=== PATIENT | female | born 1950 | race Caucasian/White ===

== ENCOUNTER 2017-02-13 15:33 | Emergency (ER) | payer OTHER, MEDICARE ==
[~2017-02-13 15:33] MED LIST: ACCUPRIL20 MG PO; ASPIRIN ADULT L81 M1 PO; BETAPACE80 MG PO; BYETTA10 MCG/0.0 SC; CINNAMON500 MG PO; CO Q-1010 M1 PO; COUMADIN5 M2 PO; Coumadin5 MG PO; DETROL LA4 MG PO; DETROL1 MG PO; DYAZIDE 25 MG-31 CAP PO; GLUCOPHAGE850 MG PO; HCTZ/TRIAMTEREN1 CAP PO; K + POTASSIUM20 MEQ PO; K-Dur 20MEQ20 MEQ PO; LECITHIN SUPER420 MG PO; LOVENOX100 MG/1 M SC; MULTI VITAMINS1 TAB PO; OCUVITE1 TA1 PO; PRAVASTATIN SOD40 MG PO; QUINAPRIL20 MG PO; SOTALOL HCL80 MG PO; TOPROL XL100 MG PO; TOPROL XL200 MG PO; VITAMIN C500 MG PO; VITAMIN D1000 IU PO; [UNRECOGNIZED DRUG - OTHER] PO; [UNRECOGNIZED DRUG - REMARK]; [UNRECOGNIZED DRUG - REMARK]
[2017-02-13 16:39] LABS: BASO % 0.7 % (0.0-1.0); EOS # 0.2 10*3/uL (0.0-0.4); EOS % 3.5 % (1.0-4.0); HEMATOCRIT 40.4 % (37.0-47.0); HEMOGLOBIN 13.9 g/dl (12.0-16.0); LYMPH # 1.3 10*3/uL (1.3-4.4); LYMPH % 21.3 % (27.0-41.0); MEAN CORPUSCULAR HGB 30.3 pg (27.0-31.0); MEAN CORPUSCULAR HGB CONC 34.4 g/dl (33.0-37.0); MEAN PLATELET VOLUME 10.1 fl (9.6-12.3); MONO # 0.7 10*3/uL (0.1-1.0); NEUT # 3.8 10*3/uL (2.3-7.9); NEUT % 62.3 % (47.0-73.0); PLATELET COUNT AUTOMATED 200 10*3/uL (130-400); RED BLOOD COUNT 4.59 10*6/uL (4.10-5.10)
[2017-02-13 16:47] LABS: INTERNATIONAL NORM RATIO 1.8 (2.0-3.5); PROTHROMBIN TIME 19.9 SECONDS (9.0-12.4)
[2017-02-13 16:55] LABS: ALBUMIN 4.1 gm/dl (3.1-4.5); ALKALINE PHOSPHATASE 60 U/L (45-117); BILIRUBIN, TOTAL 0.5 mg/dl (0.2-1.0); BUN 10 mg/dl (7-24); CARBON DIOXIDE 26 mmol/L (21-32); CHLORIDE 102 mmol/L (98-107); EST GLOM FILT AFRICAN AMERICAN > 60 ml/min; GLUCOSE 182 mg/dL (65-99); POTASSIUM 3.9 mmol/L (3.5-5.1); SGOT/AST 13 IU/L (3-35); SGPT/ALT 22 U/L (12-78); SODIUM 139 mmol/L (136-145); TOTAL PROTEIN 7.1 gm/dL (6.4-8.2)
[2017-02-13 18:09] VITALS: BP 151/73
== END 2017-02-13 18:48 | disposition home or self-care (01) ==
LOC: ED 15:33
PROVIDERS: Nurse Practitioner Family
DX: S80.12XA Contusion of left lower leg, initial encounter (principal); S50.02XA Contusion of left elbow, initial encounter; I48.91 Unspecified atrial fibrillation; M19.90 Unspecified osteoarthritis, unspecified site; Z79.899 Other long term (current) drug therapy; Z79.02 Long term (current) use of antithrombotics/antiplatelets; V89.2XXA Person injured in unspecified motor-vehicle accident, traffic, initial encounter; Y93.89 Activity, other specified; Y92.413 State road as the place of occurrence of the external cause; Y99.8 Other external cause status

== ENCOUNTER → 2017-04-12 | Outpatient (CLI) | payer MEDICARE, OTHER | END | disposition home or self-care (01) | LOC: LAB 10:33 | DX: E55.9 Vitamin D deficiency, unspecified (principal) ==

== ENCOUNTER → 2017-08-21 | Outpatient (CLI) | payer MEDICARE ==
[2017-08-21 09:13] LABS: EOS # 0.3 10*3/uL (0.0-0.4); HEMATOCRIT 41.2 % (37.0-47.0); HEMOGLOBIN 14.4 g/dl (12.0-16.0); LYMPH # 1.1 10*3/uL (1.3-4.4); LYMPH % 28.8 % (27.0-41.0); MEAN CORPUSCULAR HGB 30.1 pg (27.0-31.0); MEAN PLATELET VOLUME 10.1 fl (9.6-12.3); MONO # 0.5 10*3/uL (0.1-1.0); NEUT # 1.9 10*3/uL (2.3-7.9); NEUT % 49.9 % (47.0-73.0); PLATELET COUNT AUTOMATED 215 10*3/uL (130-400); RED BLOOD COUNT 4.79 10*6/uL (4.10-5.10); RED CELL DISTRI WIDTH 12.8 % (0-14.5); WHITE BLOOD COUNT 3.9 10*3/uL (4.8-10.8)
[2017-08-21 09:51] LABS: BUN 10 mg/dl (7-24); CHLORIDE 99 mmol/L (98-107); CHOLESTEROL 130 mg/dL (<200); CREATININE 0.88 mg/dL (0.55-1.02); POTASSIUM 4.2 mmol/L (3.5-5.1); SGOT/AST 17 IU/L (3-35); SGPT/ALT 29 U/L (12-78); SODIUM 135 mmol/L (136-145); TRIGLYCERIDES 100 mg/dl (<150); VLDL CHOLESTEROL 20 mg/dL (6-40)
[2017-08-21 10:02] LABS: ALKALINE PHOSPHATASE 71 U/L (45-117); HDL CHOLESTEROL 35 mg/dl (40-60); LDL CHOLESTEROL 75 mg/dL (9-159); THYROID STIM HORMONE (HS) 0.973 uIU/ml (0.358-4.75); TOTAL PROTEIN 7.3 gm/dL (6.4-8.2)
[2017-08-21 10:25] LABS: VITAMIN D, 25-HYDROXY 33.9 ng/mL (30-100)
== END | disposition home or self-care (01) ==
LOC: LAB 08:53
PROVIDERS: Internal Medicine
DX: I10 Essential (primary) hypertension (principal); I48.0 Paroxysmal atrial fibrillation; E11.9 Type 2 diabetes mellitus without complications; E78.4 Other hyperlipidemia; M81.0 Age-related osteoporosis without current pathological fracture

== ENCOUNTER → 2017-11-17 | Outpatient (CLI) | payer MEDICARE ==
[2017-11-17 08:02] LABS: ALBUMIN 4.2 gm/dl (3.1-4.5); ALKALINE PHOSPHATASE 54 U/L (45-117); BUN 14 mg/dl (7-24); CHLORIDE 102 mmol/L (98-107); CHOLESTEROL 121 mg/dL (<200); CREATININE 0.72 mg/dL (0.55-1.02); HDL CHOLESTEROL 33 mg/dl (40-60); LDL CHOLESTEROL 70 mg/dL (9-159); SGOT/AST 17 IU/L (3-35); SGPT/ALT 26 U/L (12-78); SODIUM 139 mmol/L (136-145); TOTAL PROTEIN 7.4 gm/dL (6.4-8.2); TRIGLYCERIDES 90 mg/dl (<150); VLDL CHOLESTEROL 18 mg/dL (6-40)
[2017-11-17 08:08] LABS: HEMATOCRIT 42.1 % (37.0-47.0); HEMOGLOBIN 14.1 g/dl (12.0-16.0); MEAN CELL VOLUME 88.1 fl (81.0-99.0); MEAN CORPUSCULAR HGB 29.5 pg (27.0-31.0); MEAN CORPUSCULAR HGB CONC 33.5 g/dl (33.0-37.0); MEAN PLATELET VOLUME 10.6 fl (9.6-12.3); PLATELET COUNT AUTOMATED 228 10*3/uL (130-400); RED BLOOD COUNT 4.78 10*6/uL (4.10-5.10); RED CELL DISTRI WIDTH 13.2 % (0-14.5); WHITE BLOOD COUNT 2.7 10*3/uL (4.8-10.8)
[2017-11-17 08:34] LABS: VITAMIN D, 25-HYDROXY 46.5 ng/mL (30-100)
[2017-11-17 09:17] LABS: PLATELET SUFFICIENCY NORMAL (NORMAL); TOTAL CELLS COUNTED 100 #CELLS
== END | disposition home or self-care (01) ==
LOC: LAB 07:00
PROVIDERS: Internal Medicine
DX: I48.0 Paroxysmal atrial fibrillation (principal); E78.4 Other hyperlipidemia; M81.0 Age-related osteoporosis without current pathological fracture; E55.9 Vitamin D deficiency, unspecified; C50.919 Malignant neoplasm of unspecified site of unspecified female breast; E11.9 Type 2 diabetes mellitus without complications; I10 Essential (primary) hypertension

== ENCOUNTER 2017-12-11 05:05 | Inpatient (IN) | payer MEDICARE ==
[~2017-12-11] VITALS: Ht 167.6 cm; Wt 87.1 kg
[2017-12-11] VITALS (14 sets, daily range): BP systolic 111–161; BP diastolic 67–126
--- NOTE | ~2017-12-11 | CON ---
[place], [place] REPORT OF CONSULTATION NAME: CATALINA CORADO [facility] #: [id number] UNIT #: [id number] ROOM: 406 DOCTOR: ANY LAINEZ MD BIRTHDATE: [birth year] DOS: 12/11/2017 REASON FOR CONSULTATION: Atrial fibrillation. CLINICAL HISTORY: The patient is a 67-year-old patient with history of paroxysmal atrial fibrillation, valvular heart disease, hypertension and diabetes, was admitted for palpitation. She was noted to have heart palpitations, but no episode of dizziness or syncope. She has been under significant stress at home with her 's illness as well as house chores. In the Emergency Room, she was found to be in atrial fibrillation with rapid ventricular rate and was admitted to the hospital and Cardiology counseled for further recommendation. She sees Dr. Diamond, the program attendant, and she was seen here a few months ago. She had a 2D echo which showed [id number], which is mostly unchanged from 2014 echo findings. Again, she denies any chest pain or shortness of breath, no dizziness or syncope, no nausea or vomiting, no headaches, no bladder or bowel symptoms, no neurologic symptoms, no genitourinary symptoms. She was on Coumadin several years ago for atrial fibrillation. Her last episode of atrial fibrillation was in around 2013. She was on aspirin and sotalol for her atrial fibrillation. REVIEW OF SYSTEMS: Review of the 10 systems was negative except as mentioned above. PAST MEDICAL HISTORY: 1. Paroxysmal atrial fibrillation. 2. Valvular heart disease with npqzvgcg-ch-nhsdoo aortic stenosis. 3. Hypertension. 4. Diabetes type 2. 5. History of leukopenia. PAST SURGICAL HISTORY: History of left foot repair and right foot repair and appendectomy. FAMILY HISTORY: Mother at the age of 68 from leukemia. Father had history of hypertension and from abdominal aortic aneurysm in his late 80s. SOCIAL HISTORY: The patient does not smoke, drink or use any illicit drugs. ALLERGIES: THE PATIENT IS ALLERGIC TO IODINE. HOME MEDICATIONS: Reviewed. Pertinent cardiac medications include aspirin and pravastatin and sotalol 120 mg twice a day. PHYSICAL EXAMINATION: VITAL SIGNS: Blood pressure 140/80, pulse variable between 110 to 125, weight 87.1 kilos. GENERAL: Alert, comfortable, in no acute distress. HEENT: Pupils round, equal. No jaundice. Tongue was moist. NECK: Supple. No distended neck veins, no carotid bruit. Thyroid not palpable. [place], [place] REPORT OF CONSULTATION NAME: CATALINA CORADO UNIT #: [id number] ROOM: [facility] DOCTOR: MIGEL OVIEDO,ANY BIRTHDATE: [birth year] CHEST: Symmetrical, nontender. LUNGS: Few rhonchi, but good air entry bilaterally. HEART: Irregularly irregular. No S3. Grade 3/6 systolic ejection murmur heard all over the precardium, grade 1/6 systolic murmur at the right sternal border. No palpable thrills. ABDOMEN: Benign, nontender. Bowel sounds normal. EXTREMITIES: Showed no edema. Distal pulses palpable. SKIN: Warm and dry. No cyanosis, no clubbing. RECTAL: Deferred. GENITOURINARY: Deferred. MUSCULOSKELETAL: No joint tenderness or swelling. NEUROLOGIC: The patient is alert and oriented. No focal neurological deficit. PSYCHIATRIC: The patient is alert with good mood and affect. REVIEW OF THE DIAGNOSTIC TESTS: EKG on admission showed atrial fibrillation with rapid ventricular rate, nonspecific ST changes. Her labs reviewed. The 2D echo in August 2017 reviewed. IMPRESSION: 1. Atrial fibrillation with rapid ventricular rate. 2. History of paroxysmal atrial fibrillation. 3. Haxjaegz-pi-vnpigu aortic stenosis. 4. Hypertension. 5. Diabetes type 2. RECOMMENDATIONS: 1. Rate control with IV Cardizem and change to p.o. Cardizem, and give her 1 dose of IV digoxin and continue her sotalol 120 mg twice a day. Risks, benefits of the oral anticoagulation were discussed due to high CHADS2-VASc score of 4. She is agreeable to take Coumadin, start at 6 mg daily since she was on 5 mg and 7.5 mg in the past. The patient is not a candidate for NOACs due to her significant valvular heart disease. Continue the Lovenox bridging until her INR is therapeutic at equal or greater than 2.0. 2. Her aortic stenosis is unchanged from 2014 echo and the patient is mostly asymptomatic, and she will follow up with Dr. Diamond. 3. Her blood pressures are stable and continue to monitor blood pressure since we are starting Cardizem for rate control. 4. Diabetes management is per Dr. Berger. 5. If the heart is stable, then possibly she can be discharged home in the next 24 to 48 hours. 6. I would not attempt any cardioversion at this time until she has been orally anticoagulated for at least 4 weeks. 7. She may need to go home on home Lovenox until her INR is therapeutic. There is no family at bedside. Above treatment and plan discussed with the patient and all of her questions were answered. [place], [place] REPORT OF CONSULTATION NAME: ULISSESMERRILLVIVEKCATALINA J UNIT #: [id number] ROOM: [facility] DOCTOR: ANY LAINEZ MD BIRTHDATE: [birth year] ANY LAINEZ MD CM:CONSTR:REPORT OF CONSULTATION [id number] 01/02/18 0727 interface
--- NOTE | ~2017-12-11 | PR ---
[place], [place] PROGRESS NOTE NAME: CATALINA CORADO [facility] #: [id number] UNIT #: [id number] ROOM: 406 DOCTOR: ANY LAINEZ MD BIRTHDATE: [birth year] DOS: 12/12/2017 REASON FOR VISIT: Atrial fibrillation and valvular heart disease. SUBJECTIVE: The patient is feeling better with occasional heart racing, but no chest pain, no dizziness, no palpitations or syncope, no PND. Still her heart rates are slightly higher with activity. She was taken off IV Cardizem last night. REVIEW OF SYSTEMS: Review of the 10 system negative except as mentioned above. PHYSICAL EXAMINATION: VITAL SIGNS: Blood pressure 113/59, pulse 92, respirations 18 and weight 87.1 kilos. GENERAL: Alert, comfortable, in no acute distress. HEENT: Pupils are equal, no jaundice. Tongue was moist. NECK: Supple, no distended neck veins, no carotid bruit. CHEST: Symmetrical, nontender. LUNGS: Clear to auscultation bilaterally. HEART: Irregularly irregular, grade 3/6 systolic ejection murmur heard all over the precardium. No palpable thrills. No S3. ABDOMEN: Bowel sounds normal, nontender. EXTREMITIES: Showed no edema. Distal pulses are palpable. SKIN: Warm and dry. No cyanosis, no clubbing. RECTAL: Deferred. GENITOURINARY: Deferred. MUSCULOSKELETAL: No joint tenderness or swelling. NEUROLOGIC: The patient is alert and oriented. No focal neurologic deficit. PSYCHIATRIC: The patient is alert with good mood and affect. Medications and labs reviewed. IMPRESSIONS AND PLAN: 1. Atrial fibrillation with rapid ventricular rate. We will give her IV digoxin 0.25 mg today and continue her sotalol and Cardizem. Due to her borderline low blood pressure, we cannot increase her Cardizem and the sotalol dose. Continue Coumadin and Lovenox. She needs Lovenox bridging until her INR is therapeutic at 2.0 or above. She will need home Lovenox and the casework specialist was notified to help her at home Lovenox. 2. History of paroxysmal atrial fibrillation with a CHADS2-VASc score of 4. She is agreeable to take the Coumadin. 3. Moderate aortic stenosis. She follows Dr. Diamond, her primary roll reclaimer after discharge, she is mostly asymptomatic. 4. Hypertension, currently stable. 5. Diabetes type 2 per primary care physician. 6. Non-morbid obesity. She can be transferred to telemetry floor and possible discharge in the next 24 hours. [place], [place] PROGRESS NOTE NAME: CATALINA CORADO UNIT #: [id number] ROOM: 406 DOCTOR: MIGEL OVIEDO,ANY BIRTHDATE: [birth year] I would not recommend rhythm management at this time until she will be on oral anticoagulants after 3-4 weeks. If she remained in atrial fibrillation, then Dr. Diamond will discuss further rhythm management. Above treatment was discussed with the patient. All questions answered. She will follow up with her primary care physician, Dr. Romero for outpatient protime monitoring. ANY LAINEZ MD CM:JERRY [id number] ANY LAINEZ MD 12/13/17 0156 interface
--- NOTE | ~2017-12-11 | PR ---
[place], [place] PROGRESS NOTE [facility] [id number] UNIT #: [id number] ROOM: 406 DOCTOR: DIEGO DREW MD BIRTHDATE: [birth year] DOS: 12/13/2017 SUBJECTIVE: The patient was seen today at her bedside for followup of her paroxysmal atrial fibrillation. She remains in atrial fibrillation with a controlled ventricular response, but is asymptomatic at this time. She also has a history of valvular heart disease with asymptomatic aortic stenosis. The patient has been ambulating in the [place] and has no symptoms at this time. The monitor shows that her heart rate is controlled, still out of rhythm. PHYSICAL EXAMINATION: VITAL SIGNS: Today, her pulse is 90 and irregularly irregular. Blood pressure is 126/71. She is afebrile. NECK: Supple. She has no jugular distention. Carotids are full. There are no bruits. She has no neck or supraclavicular masses. LUNGS: Respirations are unlabored. Her chest is clear. HEART: Has an irregularly irregular rhythm with a grade 3/6 systolic ejection murmur along the left sternal border. No diastolic murmurs are present. ABDOMEN: Soft. EXTREMITIES: Showed no edema. Peripheral pulses are palpable. She does seem to be doing well on her current medical regimen. I will be stopping aspirin and she will not get any further digoxin. We will continue heart rate control with diltiazem and we will continue to treat her with warfarin until her INR is therapeutic. At that point, Lovenox can be stopped. She should continue warfarin indefinitely. From my perspective, she can be discharged to home for followup with her primary hair designer, Dr. Diamond. Hopefully, within the next few weeks, she will convert spontaneously to sinus, but if not, he can discuss with her the possibility of an elective cardioversion as an outpatient. I thank the hospitalist physicians for asking our advice regarding her management. [place], [place] PROGRESS NOTE NAME: CATALINA CORADO UNIT #: [id number] ROOM: 406 DOCTOR: DIEGO DREW MD BIRTHDATE: [birth year] DIEGO DREW MD CM:PNTRANS [id number] DIEGO DREW MD 12/14/17 0646 interface
[~2017-12-11 05:05] MED LIST changes: -BYETTA10 MCG/0.0 SC; +BYETTA5 MCG/0.02 SC; -CINNAMON500 MG PO; +GLUCOPHAGE1000 MG PO; -GLUCOPHAGE850 MG PO; +MASON NATURAL500 MG PO
[2017-12-11 05:34] LABS: HEMATOCRIT 44.8 % (37.0-47.0); MEAN CELL VOLUME 89.1 fl (81.0-99.0); MEAN CORPUSCULAR HGB 29.8 pg (27.0-31.0); MEAN CORPUSCULAR HGB CONC 33.5 g/dl (33.0-37.0); MEAN PLATELET VOLUME 10.2 fl (9.6-12.3); PLATELET COUNT AUTOMATED 212 10*3/uL (130-400); RED BLOOD COUNT 5.03 10*6/uL (4.10-5.10); WHITE BLOOD COUNT 3.2 10*3/uL (4.8-10.8)
[2017-12-11] MEDS ORDERED: GLUCOTROL10 MG PO (05:38)
[2017-12-11] MEDS ORDERED: EXEMESTANE25 MG PO (05:40)
[2017-12-11 05:44] LABS: ACT PARTIAL THROMBO TIME 25.1 SECONDS (20.8-31.5)
[2017-12-11] MEDS ORDERED: OCUVITE ADULT1 EACH PO (05:44)
[2017-12-11] MEDS ORDERED: SUPER B COMPLE150 MG PO (05:46)
[2017-12-11] MEDS ORDERED: CO Q-1010 M2 PO (05:47)
[2017-12-11] MEDS ORDERED: BIOTIN10000 MC1 PO (05:47)
[2017-12-11] MEDS ORDERED: B12,B-12,B 12500 MC1 PO (05:48)
[2017-12-11 05:53] LABS: ALBUMIN 4.1 gm/dl (3.1-4.5); ALKALINE PHOSPHATASE 64 U/L (45-117); BUN 10 mg/dl (7-24); CHLORIDE 102 mmol/L (98-107); POTASSIUM 3.8 mmol/L (3.5-5.1); SGOT/AST 19 IU/L (3-35); SGPT/ALT 19 U/L (12-78); SODIUM 137 mmol/L (136-145); TOTAL PROTEIN 7.8 gm/dL (6.4-8.2)
[2017-12-11] MEDS ORDERED: ASPIRIN325 MG PO (05:54)
[2017-12-11] MEDS ORDERED: VITAMIN C1000 M5 PO (05:54)
[2017-12-11 05:55] LABS: TROPONIN I < 0.015 ng/ml (<0.045)
[2017-12-11 05:58] LABS: BASOPHILS 1 % (0-1); PLATELET SUFFICIENCY NORMAL (NORMAL); TOTAL CELLS COUNTED 100 #CELLS
[2017-12-11] MEDS ORDERED: TRIAMTERENE-HC1 EACH PO (07:20)
[2017-12-11] MEDS ORDERED: K-TAB20 MEQ PO (07:22)
[2017-12-11] MEDS ORDERED: FLORASTOR250 MG PO (07:23)
[2017-12-12 00:04] VITALS: BP 115/56
[2017-12-12 04:00] VITALS: BP 123/57
[2017-12-12 06:02] LABS: HEMOGLOBIN 14.6 g/dl (12.0-16.0); MEAN CELL VOLUME 88.3 fl (81.0-99.0); PLATELET COUNT AUTOMATED 203 10*3/uL (130-400); RED BLOOD COUNT 4.87 10*6/uL (4.10-5.10); RED CELL DISTRI WIDTH 12.8 % (0-14.5); WHITE BLOOD COUNT 2.4 10*3/uL (4.8-10.8)
[2017-12-12 06:27] LABS: BUN 10 mg/dl (7-24); CHLORIDE 101 mmol/L (98-107); CHOLESTEROL 114 mg/dL (<200); CREATININE 0.77 mg/dL (0.55-1.02); HDL CHOLESTEROL 31 mg/dl (40-60); LDL CHOLESTEROL 67 mg/dL (9-159); POTASSIUM 3.7 mmol/L (3.5-5.1); SODIUM 136 mmol/L (136-145); TRIGLYCERIDES 80 mg/dl (<150); VLDL CHOLESTEROL 16 mg/dL (6-40)
[2017-12-12 06:55] LABS: ATYPICAL LYMPHS 2 % (0-0); BASOPHILS 1 % (0-1); TOTAL CELLS COUNTED 100 #CELLS
[2017-12-12 06:56] LABS: PLATELET SUFFICIENCY NORMAL (NORMAL)
[2017-12-12 08:00] VITALS: BP 113/59
[2017-12-12 12:00] VITALS: BP 108/66
[2017-12-12 16:00] VITALS: BP 119/57
[2017-12-12 20:00] VITALS: BP 118/49
[2017-12-13] VITALS: BP 130/77
[2017-12-13 06:31] LABS: HEMATOCRIT 43.2 % (37.0-47.0); HEMOGLOBIN 14.7 g/dl (12.0-16.0); MEAN CELL VOLUME 88.2 fl (81.0-99.0); MEAN PLATELET VOLUME 10.1 fl (9.6-12.3); PLATELET COUNT AUTOMATED 226 10*3/uL (130-400); RED CELL DISTRI WIDTH 12.9 % (0-14.5); WHITE BLOOD COUNT 2.5 10*3/uL (4.8-10.8)
[2017-12-13 06:51] LABS: BUN 13 mg/dl (7-24); CHLORIDE 103 mmol/L (98-107); POTASSIUM 3.9 mmol/L (3.5-5.1); SODIUM 136 mmol/L (136-145)
[2017-12-13 06:52] LABS: CREATININE 0.78 mg/dL (0.55-1.02)
[2017-12-13 07:52] LABS: BASOPHILS 1 % (0-1); PLATELET SUFFICIENCY NORMAL (NORMAL); TOTAL CELLS COUNTED 100 #CELLS
[2017-12-13 08:00] VITALS: BP 110/57
[2017-12-13 12:00] VITALS: BP 126/71
[2017-12-13 12:18] LABS: INTERNATIONAL NORM RATIO 1.1 (2.0-3.5)
[2017-12-13 16:00] VITALS: BP 116/54
[2017-12-13] MEDS ORDERED: B12100 MC1 PO (16:36)
[2017-12-13] MEDS ORDERED: ENOXAPARIN100 MG/1 M SC (16:36)
[2017-12-13] MEDS ORDERED: COUMADIN6 M2 PO (16:36)
[2017-12-13] MEDS ORDERED: DILTIAZEM HCL90 M1 PO (16:36)
[2017-12-13] MEDS ORDERED: CARTIA XT180 MG PO (17:40)
== END 2017-12-13 17:43 | disposition home or self-care (01) | DRG 309 ==
LOC: ED 05:05 → ICCU 06:12 → 4E 06:12 → EDHOLD 06:12 → ICCU 06:36 → 4E 12-12 10:24
PROVIDERS: Internal Medicine; Internal Medicine Hospice and Palliative Medicine; Student in an Organized Health Care Education/Training Program
DX: I48.2 Chronic atrial fibrillation (principal); R65.10 Systemic inflammatory response syndrome (SIRS) of non-infectious origin without acute organ dysfunction; D68.59 Other primary thrombophilia; D70.9 Neutropenia, unspecified; E11.65 Type 2 diabetes mellitus with hyperglycemia; E78.00 Pure hypercholesterolemia, unspecified; E53.8 Deficiency of other specified B group vitamins; E55.9 Vitamin D deficiency, unspecified; R00.0 Tachycardia, unspecified; I35.0 Nonrheumatic aortic (valve) stenosis; I10 Essential (primary) hypertension; E66.9 Obesity, unspecified; I48.0 Paroxysmal atrial fibrillation; Z90.49 Acquired absence of other specified parts of digestive tract; Z91.041 Radiographic dye allergy status; Z79.01 Long term (current) use of anticoagulants; Z79.82 Long term (current) use of aspirin; Z82.3 Family history of stroke; Z80.6 Family history of leukemia; Z68.31 Body mass index [BMI] 31.0-31.9, adult

== ENCOUNTER → 2017-12-15 | Outpatient (CLI) | payer MEDICARE ==
[~2017-12-15] MED LIST changes: +ASPIRIN325 MG PO; +B12,B-12,B 12500 MC1 PO; +B12100 MC1 PO; +BIOTIN10000 MC1 PO; +CARTIA XT180 MG PO; +CO Q-1010 M2 PO; +COUMADIN6 M2 PO; +DILTIAZEM HCL90 M1 PO; +ENOXAPARIN100 MG/1 M SC; +EXEMESTANE25 MG PO; +FLORASTOR250 MG PO; +GLUCOTROL10 MG PO; +K-TAB20 MEQ PO; +OCUVITE ADULT1 EACH PO; +SUPER B COMPLE150 MG PO; +TRIAMTERENE-HC1 EACH PO; +VITAMIN C1000 M5 PO
[2017-12-15 08:26] LABS: INTERNATIONAL NORM RATIO 1.4 (2.0-3.5)
== END | disposition home or self-care (01) ==
LOC: LAB 07:10
PROVIDERS: Internal Medicine Hospice and Palliative Medicine
DX: I48.91 Unspecified atrial fibrillation (principal)

== ENCOUNTER → 2017-12-18 | Outpatient (CLI) | payer MEDICARE ==
[2017-12-18 08:45] LABS: INTERNATIONAL NORM RATIO 2.5 (2.0-3.5)
== END | disposition home or self-care (01) ==
LOC: LAB 07:08
PROVIDERS: Internal Medicine Hospice and Palliative Medicine
DX: I48.91 Unspecified atrial fibrillation (principal)

== ENCOUNTER → 2017-12-25 | Outpatient (CLI) | payer MEDICARE ==
[2017-12-25 08:00] LABS: INTERNATIONAL NORM RATIO 3.2 (2.0-3.5)
== END | disposition home or self-care (01) ==
LOC: LAB 07:04
PROVIDERS: Internal Medicine
DX: I48.91 Unspecified atrial fibrillation (principal)

== ENCOUNTER → 2018-01-01 | Outpatient (CLI) | payer MEDICARE | END | disposition home or self-care (01) | LOC: LAB 07:05 | PROVIDERS: Internal Medicine | DX: I48.91 Unspecified atrial fibrillation (principal) ==

== ENCOUNTER → 2018-01-09 | Outpatient (CLI) | payer MEDICARE ==
[2018-01-09 08:15] LABS: INTERNATIONAL NORM RATIO 2.8 (2.0-3.5)
== END | disposition home or self-care (01) ==
LOC: LAB 07:23
PROVIDERS: Internal Medicine Hospice and Palliative Medicine
DX: I48.91 Unspecified atrial fibrillation (principal)

== ENCOUNTER → 2018-01-16 | Outpatient (CLI) | payer MEDICARE ==
[2018-01-16 10:12] LABS: INTERNATIONAL NORM RATIO 2.6 (2.0-3.5)
== END | disposition home or self-care (01) ==
LOC: LAB 09:25
PROVIDERS: Internal Medicine Hospice and Palliative Medicine
DX: I48.91 Unspecified atrial fibrillation (principal)

== ENCOUNTER → 2018-01-24 | Outpatient (CLI) | payer MEDICARE ==
[2018-01-24 08:18] LABS: INTERNATIONAL NORM RATIO 2.9 (2.0-3.5)
== END | disposition home or self-care (01) ==
LOC: LAB 06:59
PROVIDERS: Internal Medicine Hospice and Palliative Medicine
DX: I48.91 Unspecified atrial fibrillation (principal)

== ENCOUNTER → 2018-01-31 | Outpatient (CLI) | payer MEDICARE ==
[2018-01-31 09:46] LABS: INTERNATIONAL NORM RATIO 2.9 (2.0-3.5)
== END | disposition home or self-care (01) ==
LOC: LAB 08:34
PROVIDERS: Internal Medicine Hospice and Palliative Medicine
DX: I48.91 Unspecified atrial fibrillation (principal)

== ENCOUNTER → 2018-02-07 | Outpatient (CLI) | payer MEDICARE ==
[2018-02-07 09:30] LABS: INTERNATIONAL NORM RATIO 2.2 (2.0-3.5)
== END | disposition home or self-care (01) ==
LOC: LAB 08:01
PROVIDERS: Internal Medicine Hospice and Palliative Medicine
DX: I48.91 Unspecified atrial fibrillation (principal)

== ENCOUNTER → 2018-09-07 | Outpatient (CLI) | payer OTHER | END | disposition home or self-care (01) | LOC: MRI 09:55 | DX: S83.282A Other tear of lateral meniscus, current injury, left knee, initial encounter (principal); M25.462 Effusion, left knee; M17.12 Unilateral primary osteoarthritis, left knee; X58.XXXA Exposure to other specified factors, initial encounter; Y93.89 Activity, other specified; Y92.89 Other specified places as the place of occurrence of the external cause; Y99.8 Other external cause status ==

== ENCOUNTER → 2019-09-02 | Outpatient (CLI) | payer OTHER | END | disposition home or self-care (01) | LOC: CARD 11:30 | DX: I51.7 Cardiomegaly (principal); Z95.2 Presence of prosthetic heart valve ==

== ENCOUNTER → 2019-12-04 | Outpatient (CLI) | payer MEDICARE ==
[2019-12-04 09:59] LABS: EOS # 0.3 10*3/uL (0.0-0.4); EOS % 7.4 % (1.0-4.0); HEMATOCRIT 41.7 % (37.0-47.0); LYMPH # 1.5 10*3/uL (1.3-4.4); LYMPH % 36.1 % (27.0-41.0); MEAN CELL VOLUME 90.1 fl (81.0-99.0); MEAN CORPUSCULAR HGB 29.6 pg (27.0-31.0); MEAN CORPUSCULAR HGB CONC 32.9 g/dl (33.0-37.0); MEAN PLATELET VOLUME 10.2 fl (9.6-12.3); MONO # 0.7 10*3/uL (0.1-1.0); MONO % 16.4 % (3.0-9.0); NEUT # 1.7 10*3/uL (2.3-7.9); NEUT % 39.1 % (47.0-73.0); PLATELET COUNT AUTOMATED 271 10*3/uL (130-400); RED BLOOD COUNT 4.63 10*6/uL (4.10-5.10); RED CELL DISTRI WIDTH 13.2 % (0-14.5); WHITE BLOOD COUNT 4.2 10*3/uL (4.8-10.8)
[2019-12-04 10:27] LABS: ALKALINE PHOSPHATASE 68 U/L (45-117); BUN 9 mg/dl (7-24); CHLORIDE 103 mmol/L (98-107); CHOLESTEROL 129 mg/dL (<200); CREATININE 0.74 mg/dL (0.55-1.02); HDL CHOLESTEROL 32 mg/dl (40-60); LDL CHOLESTEROL 66 mg/dL (9-159); POTASSIUM 4.4 mmol/L (3.5-5.1); SGOT/AST 21 IU/L (3-35); SGPT/ALT 28 U/L (12-78); SODIUM 137 mmol/L (136-145); TOTAL PROTEIN 7.5 gm/dL (6.4-8.2); TRIGLYCERIDES 156 mg/dl (<150); VLDL CHOLESTEROL 31 mg/dL (6-40)
== END | disposition home or self-care (01) ==
LOC: LAB 09:24
PROVIDERS: Internal Medicine
DX: I48.0 Paroxysmal atrial fibrillation (principal); C50.919 Malignant neoplasm of unspecified site of unspecified female breast; F34.1 Dysthymic disorder; E78.81 Lipoid dermatoarthritis; I10 Essential (primary) hypertension; E55.9 Vitamin D deficiency, unspecified; E11.9 Type 2 diabetes mellitus without complications; M19.90 Unspecified osteoarthritis, unspecified site

== ENCOUNTER → 2020-02-05 | Outpatient (CLI) | payer MEDICARE | END | disposition home or self-care (01) | LOC: RAD 13:30 | DX: Z13.820 Encounter for screening for osteoporosis (principal); Z78.0 Asymptomatic menopausal state ==

== ENCOUNTER → 2020-05-29 | Outpatient (CLI) | payer MEDICARE ==
[2020-05-30 05:09] LABS: CREATININE,URINE 71.2 mg/dL (Not Estab.)
== END | disposition home or self-care (01) ==
LOC: LAB 12:55
PROVIDERS: ATTEND Internal Medicine Endocrinology, Diabetes & Metabolism
DX: M81.0 Age-related osteoporosis without current pathological fracture (principal)

== ENCOUNTER → 2020-11-02 | Outpatient (CLI) | payer MEDICARE | END | disposition home or self-care (01) | LOC: CARD 08:42 | PROVIDERS: ATTEND Internal Medicine Cardiovascular Disease | DX: I48.0 Paroxysmal atrial fibrillation (principal) ==

== ENCOUNTER → 2021-03-01 | Outpatient (CLI) | payer MEDICARE ==
[2021-03-01 09:35] LABS: BASO % 0.8 % (0.0-1.0); EOS # 0.1 10*3/uL (0.0-0.4); EOS % 3.5 % (1.0-4.0); LYMPH # 1.3 10*3/uL (1.3-4.4); MEAN CELL VOLUME 87.8 fl (81.0-99.0); MEAN CORPUSCULAR HGB 29.3 pg (27.0-31.0); MEAN CORPUSCULAR HGB CONC 33.4 g/dl (33.0-37.0); MEAN PLATELET VOLUME 9.7 fl (9.6-12.3); MONO # 0.5 10*3/uL (0.1-1.0); MONO % 13.3 % (3.0-9.0); NEUT % 50.4 % (47.0-73.0); PLATELET COUNT AUTOMATED 234 10*3/uL (130-400); RED BLOOD COUNT 4.67 10*6/uL (4.10-5.10); RED CELL DISTRI WIDTH 13.6 % (0-14.5)
[2021-03-01 10:05] LABS: ALBUMIN 4.2 gm/dl (3.1-4.5); BUN 10 mg/dl (7-24); CHLORIDE 105 mmol/L (98-107); CHOLESTEROL 142 mg/dL (<200); CREATININE 0.84 mg/dL (0.55-1.02); LDL CHOLESTEROL 77 mg/dL (9-159); POTASSIUM 4.2 mmol/L (3.5-5.1); SGOT/AST 26 IU/L (3-35); SGPT/ALT 34 U/L (12-78); SODIUM 138 mmol/L (136-145); TRIGLYCERIDES 131 mg/dl (<150)
[2021-03-01 10:14] LABS: ALKALINE PHOSPHATASE 56 U/L (45-117); TOTAL PROTEIN 7.8 gm/dL (6.4-8.2)
== END | disposition home or self-care (01) ==
LOC: LAB 09:20
PROVIDERS: ATTEND Internal Medicine
DX: I48.0 Paroxysmal atrial fibrillation (principal); E11.9 Type 2 diabetes mellitus without complications; E78.81 Lipoid dermatoarthritis; I10 Essential (primary) hypertension; C50.919 Malignant neoplasm of unspecified site of unspecified female breast; E55.9 Vitamin D deficiency, unspecified

== ENCOUNTER → 2021-03-17 | Outpatient (CLI) | payer MEDICARE | END | disposition home or self-care (01) | LOC: COVID19 15:52 | PROVIDERS: ATTEND Internal Medicine | DX: Z11.52 Encounter for screening for COVID-19 (principal) ==

== ENCOUNTER → 2021-06-28 | Outpatient (CLI) | payer MEDICARE | END | disposition home or self-care (01) | LOC: COVID19 16:42 | PROVIDERS: ATTEND Student in an Organized Health Care Education/Training Program | DX: Z11.52 Encounter for screening for COVID-19 (principal) ==

== ENCOUNTER 2021-08-18 17:29 | Emergency (ER) | payer MEDICARE ==
[~2021-08-18] VITALS: Ht 167.6 cm; Wt 77.1 kg
[2021-08-18 17:39] VITALS: BP 157/65
[2021-08-18 18:25] LABS: BASO # 0.1 10*3/uL (0.0-0.1); BASO % 0.8 % (0.0-1.0); EOS # 0.3 10*3/uL (0.0-0.4); EOS % 5.2 % (1.0-4.0); HEMATOCRIT 43.1 % (37.0-47.0); LYMPH # 1.9 10*3/uL (1.3-4.4); LYMPH % 31.8 % (27.0-41.0); MEAN CELL VOLUME 87.1 fl (81.0-99.0); MEAN CORPUSCULAR HGB 28.7 pg (27.0-31.0); MEAN CORPUSCULAR HGB CONC 32.9 g/dl (33.0-37.0); MEAN PLATELET VOLUME 10.1 fl (9.6-12.3); MONO # 0.8 10*3/uL (0.1-1.0); MONO % 12.8 % (3.0-9.0); NEUT # 2.9 10*3/uL (2.3-7.9); NEUT % 49.2 % (47.0-73.0); PLATELET COUNT AUTOMATED 266 10*3/uL (130-400); RED BLOOD COUNT 4.95 10*6/uL (4.10-5.10); WHITE BLOOD COUNT 5.9 10*3/uL (4.8-10.8)
[2021-08-18 18:39] LABS: ACT PARTIAL THROMBO TIME 29.1 SECONDS (20.0-32.1); INTERNATIONAL NORM RATIO 1.1 (2.0-3.5)
[2021-08-18 18:40] LABS: ALKALINE PHOSPHATASE 73 U/L (45-117); BUN 11 mg/dl (7-24); CHLORIDE 104 mmol/L (98-107); POTASSIUM 4.1 mmol/L (3.5-5.1); SGOT/AST 28 IU/L (3-35); SGPT/ALT 34 U/L (12-78); SODIUM 138 mmol/L (136-145); TOTAL PROTEIN 7.6 gm/dL (6.4-8.2)
== END 2021-08-18 23:27 | disposition home or self-care (01) ==
LOC: ED 17:29
PROVIDERS: Emergency Medicine
DX: G45.9 Transient cerebral ischemic attack, unspecified (principal); R20.2 Paresthesia of skin; E11.65 Type 2 diabetes mellitus with hyperglycemia; I48.91 Unspecified atrial fibrillation; I10 Essential (primary) hypertension; E11.9 Type 2 diabetes mellitus without complications; E66.9 Obesity, unspecified; Z79.899 Other long term (current) drug therapy

== ENCOUNTER → 2021-08-26 | Outpatient (CLI) | payer MEDICARE ==
[2021-08-26 10:50] LABS: EOS # 0.2 10*3/uL (0.0-0.4); EOS % 4.7 % (1.0-4.0); LYMPH # 1.3 10*3/uL (1.3-4.4); LYMPH % 31.6 % (27.0-41.0); MEAN CELL VOLUME 86.9 fl (81.0-99.0); MEAN CORPUSCULAR HGB CONC 33.4 g/dl (33.0-37.0); MEAN PLATELET VOLUME 9.9 fl (9.6-12.3); MONO # 0.5 10*3/uL (0.1-1.0); MONO % 11.5 % (3.0-9.0); NEUT # 2.1 10*3/uL (2.3-7.9); PLATELET COUNT AUTOMATED 225 10*3/uL (130-400); RED BLOOD COUNT 4.72 10*6/uL (4.10-5.10); RED CELL DISTRI WIDTH 12.9 % (0-14.5); WHITE BLOOD COUNT 4.1 10*3/uL (4.8-10.8)
[2021-08-26 11:16] LABS: BUN 9 mg/dl (7-24); CHLORIDE 105 mmol/L (98-107); CHOLESTEROL 130 mg/dL (<200); CREATININE 0.71 mg/dL (0.55-1.02); IRON 100 ug/dL (50-170); POTASSIUM 4.1 mmol/L (3.5-5.1); SGOT/AST 29 IU/L (3-35); SGPT/ALT 38 U/L (12-78); SODIUM 137 mmol/L (136-145); TOTAL PROTEIN 7.6 gm/dL (6.4-8.2); TRIGLYCERIDES 138 mg/dl (<150)
[2021-08-26 11:23] LABS: ALKALINE PHOSPHATASE 68 U/L (45-117); LDL CHOLESTEROL 47 mg/dL (9-159)
[2021-08-26 12:40] LABS: FERRITIN 24.6 ng/mL (10.0-291.0); VITAMIN D, 25-HYDROXY 46.9 ng/mL (30-100)
== END | disposition home or self-care (01) ==
LOC: LAB 10:23
PROVIDERS: ATTEND Internal Medicine
DX: E11.9 Type 2 diabetes mellitus without complications (principal); E78.81 Lipoid dermatoarthritis; I10 Essential (primary) hypertension; C50.919 Malignant neoplasm of unspecified site of unspecified female breast; E55.9 Vitamin D deficiency, unspecified; I48.0 Paroxysmal atrial fibrillation

== ENCOUNTER → 2021-09-08 | Outpatient (CLI) | payer MEDICARE | END | disposition home or self-care (01) | LOC: CARD 07:29 | PROVIDERS: ATTEND Internal Medicine Cardiovascular Disease | DX: Z95.2 Presence of prosthetic heart valve (principal) ==

== ENCOUNTER → 2022-01-01 | Outpatient (CLI) | payer MEDICARE ==
[2022-01-01 09:08] LABS: BASO % 0.9 % (0.0-1.0); EOS # 0.2 10*3/uL (0.0-0.4); HEMATOCRIT 40.2 % (37.0-47.0); LYMPH # 1.3 10*3/uL (1.3-4.4); MEAN CELL VOLUME 89.1 fl (81.0-99.0); MEAN CORPUSCULAR HGB 29.3 pg (27.0-31.0); MEAN CORPUSCULAR HGB CONC 32.8 g/dl (33.0-37.0); MEAN PLATELET VOLUME 9.9 fl (9.6-12.3); MONO # 0.5 10*3/uL (0.1-1.0); MONO % 10.5 % (3.0-9.0); NEUT # 2.5 10*3/uL (2.3-7.9); NEUT % 55.4 % (47.0-73.0); PLATELET COUNT AUTOMATED 220 10*3/uL (130-400); RED BLOOD COUNT 4.51 10*6/uL (4.10-5.10); WHITE BLOOD COUNT 4.6 10*3/uL (4.8-10.8)
[2022-01-01 09:27] LABS: ALKALINE PHOSPHATASE 82 U/L (45-117); BUN 7 mg/dl (7-24); CHLORIDE 104 mmol/L (98-107); CHOLESTEROL 121 mg/dL (<200); CREATININE 0.73 mg/dL (0.55-1.02); IRON 66 ug/dL (50-170); LDL CHOLESTEROL 62 mg/dL (9-159); POTASSIUM 4.2 mmol/L (3.5-5.1); SGOT/AST 32 IU/L (3-35); SGPT/ALT 38 U/L (12-78); SODIUM 138 mmol/L (136-145); TOTAL PROTEIN 7.2 gm/dL (6.4-8.2); TRIGLYCERIDES 114 mg/dl (<150)
[2022-01-01 10:18] LABS: FERRITIN 24.9 ng/mL (10.0-291.0); VITAMIN D, 25-HYDROXY 58.2 ng/mL (30-100)
== END | disposition home or self-care (01) ==
LOC: LAB 08:40
PROVIDERS: ATTEND Internal Medicine
DX: C50.919 Malignant neoplasm of unspecified site of unspecified female breast (principal); E11.9 Type 2 diabetes mellitus without complications; I10 Essential (primary) hypertension; E78.81 Lipoid dermatoarthritis; E55.9 Vitamin D deficiency, unspecified; E53.8 Deficiency of other specified B group vitamins

== ENCOUNTER 2022-06-04 17:14 | Emergency (ER) | payer MEDICARE ==
[~2022-06-04] VITALS: Ht 165.1 cm; Wt 81.6 kg
[2022-06-04 19:28] VITALS: BP 162/74
[2022-06-04 20:37] LABS: BASO # 0.1 10*3/uL (0.0-0.1); BASO % 0.7 % (0.0-1.0); EOS # 0.2 10*3/uL (0.0-0.4); EOS % 2.1 % (1.0-4.0); HEMATOCRIT 42.8 % (37.0-47.0); LYMPH # 2.4 10*3/uL (1.3-4.4); LYMPH % 32.3 % (27.0-41.0); MEAN CELL VOLUME 89.7 fl (81.0-99.0); MEAN CORPUSCULAR HGB CONC 33.4 g/dl (33.0-37.0); MEAN PLATELET VOLUME 10.1 fl (9.6-12.3); MONO # 1.3 10*3/uL (0.1-1.0); MONO % 17.4 % (3.0-9.0); NEUT # 3.4 10*3/uL (2.3-7.9); NEUT % 46.8 % (47.0-73.0); PLATELET COUNT AUTOMATED 302 10*3/uL (130-400); RED BLOOD COUNT 4.77 10*6/uL (4.10-5.10); RED CELL DISTRI WIDTH 12.4 % (0-14.5); WHITE BLOOD COUNT 7.3 10*3/uL (4.8-10.8)
[2022-06-04 20:51] LABS: ALKALINE PHOSPHATASE 74 U/L (46-116); CHLORIDE 98 mmol/L (98-107); CREATININE 0.64 mg/dL (0.55-1.02); POTASSIUM 3.7 mmol/L (3.4-5.1); SGPT/ALT 11 U/L (10-49); SODIUM 133 mmol/L (136-145); TOTAL PROTEIN 7.8 gm/dL (6.0-8.0)
[2022-06-04 20:55] LABS: BUN < 5 mg/dl (9-23)
== END 2022-06-04 22:42 | disposition home or self-care (01) ==
LOC: ED 17:14
PROVIDERS: Emergency Medicine
DX: H10.32 Unspecified acute conjunctivitis, left eye (principal); Z20.822 Contact with and (suspected) exposure to COVID-19; H11.31 Conjunctival hemorrhage, right eye; B97.4 Respiratory syncytial virus as the cause of diseases classified elsewhere; I48.91 Unspecified atrial fibrillation; E11.9 Type 2 diabetes mellitus without complications; E78.00 Pure hypercholesterolemia, unspecified; I10 Essential (primary) hypertension; E66.9 Obesity, unspecified; Z79.899 Other long term (current) drug therapy

== ENCOUNTER → 2022-07-21 | Outpatient (CLI) | payer MEDICARE ==
[2022-07-21 10:04] LABS: BASO % 0.9 % (0.0-1.0); EOS # 0.2 10*3/uL (0.0-0.4); EOS % 3.2 % (1.0-4.0); HEMATOCRIT 44.2 % (37.0-47.0); LYMPH # 1.4 10*3/uL (1.3-4.4); LYMPH % 30.9 % (27.0-41.0); MEAN CELL VOLUME 88.2 fl (81.0-99.0); MEAN CORPUSCULAR HGB 29.5 pg (27.0-31.0); MEAN CORPUSCULAR HGB CONC 33.5 g/dl (33.0-37.0); MEAN PLATELET VOLUME 9.6 fl (9.6-12.3); MONO # 0.5 10*3/uL (0.1-1.0); MONO % 9.9 % (3.0-9.0); NEUT # 2.6 10*3/uL (2.3-7.9); NEUT % 54.9 % (47.0-73.0); PLATELET COUNT AUTOMATED 270 10*3/uL (130-400); RED BLOOD COUNT 5.01 10*6/uL (4.10-5.10); RED CELL DISTRI WIDTH 12.8 % (0-14.5); WHITE BLOOD COUNT 4.7 10*3/uL (4.8-10.8)
[2022-07-21 10:35] LABS: ALKALINE PHOSPHATASE 64 U/L (46-116); BUN 10 mg/dl (9-23); CHLORIDE 100 mmol/L (98-107); CHOLESTEROL 140 mg/dL (<200); LDL CHOLESTEROL 74 mg/dL (9-159); POTASSIUM 3.9 mmol/L (3.4-5.1); SGPT/ALT 25 U/L (10-49); THYROID STIM HORMONE (HS) 0.868 uIU/ml (0.550-4.780); TOTAL PROTEIN 7.7 gm/dL (6.0-8.0); TRIGLYCERIDES 140 mg/dl (<150)
== END | disposition home or self-care (01) ==
LOC: LAB 09:35
PROVIDERS: ATTEND Internal Medicine
DX: E11.9 Type 2 diabetes mellitus without complications (principal); I10 Essential (primary) hypertension; E78.81 Lipoid dermatoarthritis; E78.5 Hyperlipidemia, unspecified; E53.8 Deficiency of other specified B group vitamins; E55.9 Vitamin D deficiency, unspecified; C50.919 Malignant neoplasm of unspecified site of unspecified female breast

== ENCOUNTER → 2023-01-13 | Outpatient (CLI) | payer MEDICARE ==
[2023-01-13 10:35] LABS: BASO % 0.9 % (0.0-1.0); EOS # 0.2 10*3/uL (0.0-0.4); EOS % 5.2 % (1.0-4.0); HEMATOCRIT 40.4 % (37.0-47.0); LYMPH # 1.3 10*3/uL (1.3-4.4); LYMPH % 38.4 % (27.0-41.0); MEAN CELL VOLUME 90.4 fl (81.0-99.0); MEAN CORPUSCULAR HGB 30.4 pg (27.0-31.0); MEAN CORPUSCULAR HGB CONC 33.7 g/dl (33.0-37.0); MEAN PLATELET VOLUME 10.2 fl (9.6-12.3); MONO # 0.5 10*3/uL (0.1-1.0); MONO % 14.6 % (3.0-9.0); NEUT # 1.3 10*3/uL (2.3-7.9); NEUT % 40.6 % (47.0-73.0); PLATELET COUNT AUTOMATED 253 10*3/uL (130-400); RED BLOOD COUNT 4.47 10*6/uL (4.10-5.10); RED CELL DISTRI WIDTH 13.1 % (0-14.5); WHITE BLOOD COUNT 3.3 10*3/uL (4.8-10.8)
[2023-01-13 11:06] LABS: ALKALINE PHOSPHATASE 52 U/L (46-116); BUN 8 mg/dl (9-23); CHLORIDE 104 mmol/L (98-107); CHOLESTEROL 124 mg/dL (<200); LDL CHOLESTEROL 64 mg/dL (9-159); SGPT/ALT 21 U/L (10-49); TOTAL PROTEIN 7.1 gm/dL (6.0-8.0); TRIGLYCERIDES 134 mg/dl (<150)
[2023-01-13 11:45] LABS: VITAMIN D, 25-HYDROXY 36.5 ng/mL (30-100)
== END | disposition home or self-care (01) ==
LOC: LAB 09:44
PROVIDERS: ATTEND Internal Medicine
DX: I48.0 Paroxysmal atrial fibrillation (principal); E11.9 Type 2 diabetes mellitus without complications; I10 Essential (primary) hypertension; E78.81 Lipoid dermatoarthritis; C50.919 Malignant neoplasm of unspecified site of unspecified female breast; E55.9 Vitamin D deficiency, unspecified; E53.8 Deficiency of other specified B group vitamins

== ENCOUNTER → 2023-12-01 | Outpatient (CLI) | payer MEDICARE ==
[2023-12-01 08:43] LABS: BASO % 1.1 % (0.0-1.0); EOS # 0.2 10*3/uL (0.0-0.4); EOS % 5.2 % (1.0-4.0); HEMATOCRIT 42.6 % (37.0-47.0); LYMPH # 1.4 10*3/uL (1.3-4.4); LYMPH % 38.8 % (27.0-41.0); MEAN CELL VOLUME 91.4 fl (81.0-99.0); MEAN CORPUSCULAR HGB CONC 32.9 g/dl (33.0-37.0); MONO # 0.6 10*3/uL (0.1-1.0); NEUT # 1.5 10*3/uL (2.3-7.9); NEUT % 39.6 % (47.0-73.0); PLATELET COUNT AUTOMATED 228 10*3/uL (130-400); RED BLOOD COUNT 4.66 10*6/uL (4.10-5.10); WHITE BLOOD COUNT 3.7 10*3/uL (4.8-10.8)
[2023-12-01 09:15] LABS: ALKALINE PHOSPHATASE 62 U/L (46-116); BUN 7 mg/dl (9-23); CHLORIDE 102 mmol/L (98-107); CHOLESTEROL 134 mg/dL (<200); LDL CHOLESTEROL 77 mg/dL (9-159); POTASSIUM 3.7 mmol/L (3.4-5.1); SGPT/ALT 19 U/L (5-49); TOTAL PROTEIN 7.3 gm/dL (6.0-8.0); TRIGLYCERIDES 126 mg/dl (<150)
[2023-12-01 10:07] LABS: VITAMIN D, 25-HYDROXY 44.9 ng/mL (30-100)
== END | disposition home or self-care (01) ==
LOC: LAB 08:22
PROVIDERS: ATTEND Internal Medicine
DX: I48.0 Paroxysmal atrial fibrillation (principal); I10 Essential (primary) hypertension; E11.9 Type 2 diabetes mellitus without complications; E78.81 Lipoid dermatoarthritis; E53.8 Deficiency of other specified B group vitamins; E55.9 Vitamin D deficiency, unspecified

== ENCOUNTER 2024-02-08 13:32 | Observation (INO) | payer MEDICARE ==
[~2024-02-08] VITALS: Ht 167.6 cm; Wt 86.2 kg
[2024-02-08 14:53] LABS: HEMATOCRIT 44.1 % (37.0-47.0); MEAN CELL VOLUME 91.5 fl (81.0-99.0); MEAN CORPUSCULAR HGB 29.7 pg (27.0-31.0); MEAN CORPUSCULAR HGB CONC 32.4 g/dl (33.0-37.0); MEAN PLATELET VOLUME 9.5 fl (9.6-12.3); PLATELET COUNT AUTOMATED 229 10*3/uL (130-400); RED BLOOD COUNT 4.82 10*6/uL (4.10-5.10); RED CELL DISTRI WIDTH 13.3 % (0-14.5); WHITE BLOOD COUNT 3.8 10*3/uL (4.8-10.8)
[2024-02-08 14:54] LABS: MANUAL DIFF REFLEX YES
[2024-02-08 15:02] LABS: ACT PARTIAL THROMBO TIME 30.8 SECONDS (20.0-32.1)
[2024-02-08] MEDS ORDERED: ASPIRIN, CHEWABLE 81 MG TAB PO ONE (15:05)
[2024-02-08 15:22] LABS: ATYPICAL LYMPHS 1 % (0-0); PLATELET SUFFICIENCY NORMAL (NORMAL); TOTAL CELLS COUNTED 100 #CELLS
[2024-02-08 15:28] LABS: BUN 7 mg/dl (9-23); CHLORIDE 103 mmol/L (98-107); POTASSIUM 3.9 mmol/L (3.4-5.1)
[2024-02-08] MEDS ORDERED: Ondansetron Hydrochloride 4 MG/2 ML VIAL IV PRN (15:55)
[2024-02-08] MEDS ORDERED: ACETAMINOPHEN 325 MG TAB PO PRN (15:55)
[2024-02-08] MEDS ORDERED: BISACODYL 5 MG TAB PO PRN (15:55)
[2024-02-08] MEDS ORDERED: DEXTROSE 10 % IN WATER 250 ML IV PRN (16:00)
[2024-02-08] MEDS ORDERED: OZEMPIC1 MG/0.71 SQ (16:27)
[2024-02-08] MEDS ORDERED: FARXIGA5 M1 PO (16:29)
[2024-02-08] MEDS ORDERED: INSULIN LISPRO 1 UNIT/0.01 ML SQ SCH (16:30)
[2024-02-08] MEDS ORDERED: DILTIAZEM 24HR360 MG PO (16:31)
[2024-02-08] MEDS ORDERED: LOPRESSOR25 MG PO (16:34)
[2024-02-08] MEDS ORDERED: FUROSEMIDE20 M1 PO (16:35)
[2024-02-08] MEDS ORDERED: ELIQUIS5 M1 PO (16:36)
[2024-02-08] MEDS ORDERED: SODIUM CHLORIDE 0.9% 100 ML BAG IV ONE (17:50)
[2024-02-08] MEDS ORDERED: Iodixanol 320 100 ML VIAL IV ONE (17:50)
[2024-02-08 19:45] VITALS: BP 135/61
[2024-02-08] MEDS ORDERED: Sotalol Hydrochloride 80 MG TAB PO SCH (22:00)
[2024-02-08] MEDS ORDERED: APIXABAN 5 MG TAB PO SCH (22:00)
[2024-02-08 22:01] VITALS: BP 136/63
[2024-02-09 04:34] VITALS: BP 138/63
[2024-02-09 06:28] LABS: HEMATOCRIT 41.7 % (37.0-47.0); MEAN CELL VOLUME 89.7 fl (81.0-99.0); MEAN CORPUSCULAR HGB 30.3 pg (27.0-31.0); MEAN CORPUSCULAR HGB CONC 33.8 g/dl (33.0-37.0); MEAN PLATELET VOLUME 10.1 fl (9.6-12.3); PLATELET COUNT AUTOMATED 225 10*3/uL (130-400); RED BLOOD COUNT 4.65 10*6/uL (4.10-5.10); RED CELL DISTRI WIDTH 13.3 % (0-14.5); WHITE BLOOD COUNT 2.9 10*3/uL (4.8-10.8)
[2024-02-09 06:32] LABS: MANUAL DIFF REFLEX YES
[2024-02-09 06:59] LABS: ALKALINE PHOSPHATASE 53 U/L (46-116); BUN 6 mg/dl (9-23); CHLORIDE 105 mmol/L (98-107); CHOLESTEROL 133 mg/dL (<200); FREE T4 1.15 ng/dl (0.89-1.76); LDL CHOLESTEROL 69 mg/dL (9-159); POTASSIUM 3.4 mmol/L (3.4-5.1); SGPT/ALT 14 U/L (5-49); TOTAL PROTEIN 6.9 gm/dL (6.0-8.0); TRIGLYCERIDES 163 mg/dl (<150)
[2024-02-09 08:08] LABS: ATYPICAL LYMPHS 1 % (0-0); PLATELET SUFFICIENCY NORMAL (NORMAL); TOTAL CELLS COUNTED 100 #CELLS
[2024-02-09 08:37] LABS: VITAMIN D, 25-HYDROXY 54.9 ng/mL (30-100)
[2024-02-09 09:00] VITALS: BP 138/63
[2024-02-09] MEDS ORDERED: DILTIAZEM CD 180 MG CAP PO SCH (10:00)
[2024-02-09] MEDS ORDERED: Vitamin D 1,000 IU TAB (25 MCG) PO SCH (10:00)
[2024-02-09] MEDS ORDERED: Metoprolol Tartrate 25 MG TAB PO SCH (10:00)
[2024-02-09] MEDS ORDERED: FUROSEMIDE 20 MG TAB PO SCH (10:00)
[2024-02-09] MEDS ORDERED: LISINOPRIL 10 MG TAB PO SCH (10:00)
[2024-02-09 12:07] VITALS: BP 138/68
[2024-02-09] MEDS ORDERED: ATORVASTATIN CALCIUM 10 MG TAB PO SCH (22:00)
== END 2024-02-09 13:37 | disposition home or self-care (01) ==
LOC: ED 13:32 → EDHOLD 15:28
PROVIDERS: Emergency Medicine; Registered Nurse; ADMIT Student in an Organized Health Care Education/Training Program; ATTEND Student in an Organized Health Care Education/Training Program
DX: G45.9 Transient cerebral ischemic attack, unspecified (principal); I10 Essential (primary) hypertension; D68.69 Other thrombophilia; I48.91 Unspecified atrial fibrillation; E11.65 Type 2 diabetes mellitus with hyperglycemia; E78.5 Hyperlipidemia, unspecified; I25.10 Atherosclerotic heart disease of native coronary artery without angina pectoris; Z79.4 Long term (current) use of insulin; Z79.82 Long term (current) use of aspirin; Z79.899 Other long term (current) drug therapy

== ENCOUNTER → 2024-02-20 | Outpatient (CLI) | payer MEDICARE ==
[~2024-02-20] MED LIST changes: +DILTIAZEM 24HR360 MG PO; +ELIQUIS5 M1 PO; +FARXIGA5 M1 PO; +FUROSEMIDE20 M1 PO; +LOPRESSOR25 MG PO; +OZEMPIC1 MG/0.71 SQ
== END | disposition home or self-care (01) ==
LOC: RAD 07:15
PROVIDERS: ATTEND Internal Medicine
DX: S90.32XA Contusion of left foot, initial encounter (principal); M19.072 Primary osteoarthritis, left ankle and foot; M77.32 Calcaneal spur, left foot; X58.XXXA Exposure to other specified factors, initial encounter; Y93.89 Activity, other specified; Y92.89 Other specified places as the place of occurrence of the external cause; Y99.8 Other external cause status

== ENCOUNTER → 2024-05-31 | Outpatient (CLI) | payer MEDICARE ==
[2024-05-31 09:18] LABS: HEMATOCRIT 45.2 % (37.0-47.0); MEAN CELL VOLUME 93.8 fl (81.0-99.0); MEAN CORPUSCULAR HGB 29.5 pg (27.0-31.0); MEAN CORPUSCULAR HGB CONC 31.4 g/dl (33.0-37.0); PLATELET COUNT AUTOMATED 285 10*3/uL (130-400); RED BLOOD COUNT 4.82 10*6/uL (4.10-5.10); RED CELL DISTRI WIDTH 13.6 % (0-14.5)
[2024-05-31 09:21] LABS: MANUAL DIFF REFLEX YES
[2024-05-31 09:49] LABS: BASOPHILS 1 % (0-1); TOTAL CELLS COUNTED 100 #CELLS
[2024-05-31 09:50] LABS: ALKALINE PHOSPHATASE 66 U/L (46-116); BUN 9 mg/dl (9-23); CHLORIDE 101 mmol/L (98-107); CHOLESTEROL 140 mg/dL (<200); LDL CHOLESTEROL 72 mg/dL (9-159); PLATELET SUFFICIENCY NORMAL (NORMAL); POTASSIUM 3.3 mmol/L (3.4-5.1); SGPT/ALT 9 U/L (5-49); TOTAL PROTEIN 7.6 gm/dL (6.0-8.0); TRIGLYCERIDES 142 mg/dl (<150)
== END | disposition home or self-care (01) ==
LOC: LAB 08:20
PROVIDERS: ATTEND Internal Medicine
DX: I48.0 Paroxysmal atrial fibrillation (principal); E11.9 Type 2 diabetes mellitus without complications; E78.81 Lipoid dermatoarthritis; I10 Essential (primary) hypertension; C50.919 Malignant neoplasm of unspecified site of unspecified female breast; E55.9 Vitamin D deficiency, unspecified; E53.8 Deficiency of other specified B group vitamins

== ENCOUNTER → 2024-08-26 | Outpatient (CLI) | payer MEDICARE | END | disposition home or self-care (01) | LOC: CARD 03:35 | PROVIDERS: ATTEND Internal Medicine Cardiovascular Disease | DX: I08.3 Combined rheumatic disorders of mitral, aortic and tricuspid valves (principal); I48.0 Paroxysmal atrial fibrillation ==

== ENCOUNTER 2024-10-02 19:19 | Emergency (ER) | payer MEDICARE ==
[~2024-10-02] VITALS: Ht 165.1 cm; Wt 83.9 kg
[2024-10-02 19:20] VITALS: BP 144/74
[2024-10-02] MEDS ORDERED: Rabies Vaccine 1 ML VIAL IM ONE (20:15)
[2024-10-02] MEDS ORDERED: Rabies Immune Globulin 300 UNIT/2 ML VIAL IM ONE (20:15)
[2024-10-02] MEDS ORDERED: Amoxicillin/Clavulanate Pota 875 MG TAB PO ONE (20:20)
[2024-10-02] MEDS ORDERED: RABIES IMMUNE GLOBULIN U RABIES IMMUNE GLOBULIN U IM ONE (20:20)
[2024-10-02] MEDS ORDERED: AMOX-CLAV 875-1 EACH PO (20:25)
== END 2024-10-02 20:27 | disposition home or self-care (01) ==
LOC: ED 19:19
DX: S61.552A Open bite of left wrist, initial encounter (principal); I10 Essential (primary) hypertension; E11.9 Type 2 diabetes mellitus without complications; I25.10 Atherosclerotic heart disease of native coronary artery without angina pectoris; Z98.890 Other specified postprocedural states; W61.91XA Bitten by other birds, initial encounter; Y93.89 Activity, other specified; Y92.89 Other specified places as the place of occurrence of the external cause; Y99.8 Other external cause status

== ENCOUNTER 2024-10-05 08:16 | Emergency (ER) | payer MEDICARE ==
[~2024-10-05] VITALS: Ht 165.1 cm; Wt 83.9 kg
[~2024-10-05 08:16] MED LIST changes: +AMOX-CLAV 875-1 EACH PO
[2024-10-05 08:27] VITALS: BP 126/71
[2024-10-05] MEDS ORDERED: Rabies Vaccine 1 ML VIAL IM ONE (08:30)
== END 2024-10-05 08:50 | disposition home or self-care (01) ==
LOC: ED 08:16
DX: S61.552D Open bite of left wrist, subsequent encounter (principal); Z23 Encounter for immunization; I48.91 Unspecified atrial fibrillation; Z88.8 Allergy status to other drugs, medicaments and biological substances; Z79.899 Other long term (current) drug therapy; Z79.84 Long term (current) use of oral hypoglycemic drugs; Z98.890 Other specified postprocedural states; Z95.1 Presence of aortocoronary bypass graft; W55.81XD Bitten by other mammals, subsequent encounter

== ENCOUNTER 2024-10-09 14:54 | Emergency (ER) | payer MEDICARE ==
[~2024-10-09] VITALS: Ht 165.1 cm; Wt 83.9 kg
[2024-10-09 14:59] VITALS: BP 126/60
[2024-10-09] MEDS ORDERED: Rabies Vaccine 1 ML VIAL IM ONE (15:15)
== END 2024-10-09 15:36 | disposition home or self-care (01) ==
LOC: ED 14:54
DX: T14.8XXD Other injury of unspecified body region, subsequent encounter (principal); Z23 Encounter for immunization; W61.91XD Bitten by other birds, subsequent encounter

== ENCOUNTER 2024-10-16 21:02 | Emergency (ER) | payer MEDICARE ==
[2024-10-16 21:15] VITALS: BP 144/63
[2024-10-16] MEDS ORDERED: Rabies Vaccine 1 ML VIAL IM ONE (21:25)
== END 2024-10-16 21:50 | disposition home or self-care (01) ==
LOC: ED 21:02
DX: S61.459D Open bite of unspecified hand, subsequent encounter (principal); I10 Essential (primary) hypertension; E11.9 Type 2 diabetes mellitus without complications; I25.10 Atherosclerotic heart disease of native coronary artery without angina pectoris; Z79.899 Other long term (current) drug therapy; Z91.041 Radiographic dye allergy status; Z95.1 Presence of aortocoronary bypass graft; Z98.890 Other specified postprocedural states; W61.91XD Bitten by other birds, subsequent encounter

== ENCOUNTER → 2024-11-28 | Outpatient (CLI) | payer MEDICARE ==
[2024-11-28 08:59] LABS: HEMATOCRIT 42.2 % (37.0-47.0); MANUAL DIFF REFLEX YES; MEAN CELL VOLUME 94.2 fl (81.0-99.0); MEAN CORPUSCULAR HGB 30.1 pg (27.0-31.0); MEAN PLATELET VOLUME 10.1 fl (9.6-12.3); PLATELET COUNT AUTOMATED 254 10*3/uL (130-400); RED BLOOD COUNT 4.48 10*6/uL (4.10-5.10); RED CELL DISTRI WIDTH 14.7 % (0-14.5); WHITE BLOOD COUNT 2.8 10*3/uL (4.8-10.8)
[2024-11-28 09:38] LABS: ALKALINE PHOSPHATASE 61 U/L (46-116); BUN 7 mg/dl (9-23); CHLORIDE 100 mmol/L (98-107); CHOLESTEROL 132 mg/dL (<200); LDL CHOLESTEROL 75 mg/dL (9-159); POTASSIUM 3.5 mmol/L (3.4-5.1); SGPT/ALT 11 U/L (5-49); TOTAL PROTEIN 7.3 gm/dL (6.0-8.0); TRIGLYCERIDES 86 mg/dl (<150)
[2024-11-28 09:39] LABS: ATYPICAL LYMPHS 2 % (0-0); OVALOCYTES FEW; PLATELET SUFFICIENCY NORMAL (NORMAL); POLYCHROMASIA SLIGHT; TOTAL CELLS COUNTED 100 #CELLS
[2024-11-28 10:07] LABS: VITAMIN D, 25-HYDROXY 86.3 ng/mL (30-100)
== END | disposition home or self-care (01) ==
LOC: LAB 08:15
PROVIDERS: ATTEND Internal Medicine
DX: E11.9 Type 2 diabetes mellitus without complications (principal); I48.0 Paroxysmal atrial fibrillation; E78.81 Lipoid dermatoarthritis; I10 Essential (primary) hypertension; C50.919 Malignant neoplasm of unspecified site of unspecified female breast; E55.9 Vitamin D deficiency, unspecified; E53.8 Deficiency of other specified B group vitamins

== ENCOUNTER → 2025-01-13 | Outpatient (CLI) | payer MEDICARE | LOC: US 08:53 | PROVIDERS: ATTEND Internal Medicine | DX: E04.1 Nontoxic single thyroid nodule (principal); E03.9 Hypothyroidism, unspecified ==

== ENCOUNTER → 2025-02-06 | Outpatient (CLI) | payer MEDICARE | END | disposition home or self-care (01) | LOC: LAB 08:55 | PROVIDERS: ATTEND Internal Medicine | DX: E11.9 Type 2 diabetes mellitus without complications (principal); E78.5 Hyperlipidemia, unspecified ==

== ENCOUNTER → 2025-03-19 | Outpatient (CLI) | payer MEDICARE ==
[2025-03-19 11:24] LABS: FREE T4 1.03 ng/dl (0.89-1.76)
== END | disposition home or self-care (01) ==
LOC: LAB 09:52
PROVIDERS: ATTEND Internal Medicine
DX: E03.9 Hypothyroidism, unspecified (principal)

== ENCOUNTER 2025-04-30 22:13 | Observation (INO) | payer MEDICARE ==
[~2025-04-30] VITALS: Ht 165.1 cm; Wt 86.7 kg
[~2025-04-30 22:13] MED LIST changes: +GLUCOTROL10 M1 PO; -GLUCOTROL10 MG PO
[2025-04-30 22:29] VITALS: BP 181/72
[2025-04-30] MEDS ORDERED: FAMOTIDINE 20 MG in SYRINGE INFUSION 8 ML IV ONE (22:40)
[2025-04-30] MEDS ORDERED: diphenhydrAMINE hydrochloride 50 MG/ML VIAL IV ONE (22:40)
[2025-04-30] MEDS ORDERED: SODIUM CHLORIDE 0.9% 100 ML BAG IV ONE (22:50)
[2025-04-30] MEDS ORDERED: IOHEXOL 350 MG/ML 100 ML VIAL IV ONE (22:50)
[2025-04-30 23:01] LABS: MEAN CELL VOLUME 90.4 fl (81.0-99.0); MEAN CORPUSCULAR HGB 29.6 pg (27.0-31.0); MEAN PLATELET VOLUME 9.5 fl (9.6-12.3); NUCLEATED RED BLOOD CELL 0.0 % (0.0-0.0); NUCLEATED RED BLOOD CELL 0.0 10*3/uL (0.0-0.0); PLATELET COUNT AUTOMATED 234 10*3/uL (130-400); RED CELL DISTRI WIDTH 13.7 % (0-14.5)
[2025-04-30] MEDS ORDERED: Iodixanol 320 100 ML VIAL IV ONE (23:10)
[2025-04-30 23:12] LABS: MANUAL DIFF REFLEX YES
[2025-04-30] MEDS ORDERED: FAMOTIDINE 20 MG/2 ML VIAL ONE (23:15)
[2025-04-30 23:22] LABS: ACT PARTIAL THROMBO TIME 29.2 SECONDS (20.0-32.1); PLATELET SUFFICIENCY NORMAL (NORMAL)
[2025-04-30] MEDS ORDERED: Iodixanol 320 100 ML VIAL ONE (23:34)
[2025-04-30 23:52] LABS: BUN 10 mg/dl (9-23); CPK 43 U/L (34-171)
[2025-05-01] MEDS ORDERED: Levothyroxine Sodium 100 MCG IV ONE (00:10)
[2025-05-01] MEDS ORDERED: ASPIRIN 325 MG ENTERIC COATED PO ONE (00:10)
[2025-05-01] MEDS ORDERED: ZESTRIL10 MG PO (01:07)
[2025-05-01] MEDS ORDERED: OCUVITE ADULT1 EAC3 PO (01:08)
[2025-05-01] MEDS ORDERED: ASPIRIN ADULT L81 M1 PO (01:09)
[2025-05-01] MEDS ORDERED: SYNTHROID,LEVO75 MCG PO (01:11)
[2025-05-01] MEDS ORDERED: ACETAMINOPHEN 325 MG TAB PO PRN (02:25)
[2025-05-01] MEDS ORDERED: ACETAMINOPHEN 650 MG SUPP R PRN (02:25)
[2025-05-01] MEDS ORDERED: Acetaminophen/Hydrocodone 5 MG/325 MG TABLET PO PRN (02:25)
[2025-05-01] MEDS ORDERED: BISACODYL 10 MG SUPP R PRN (02:25)
[2025-05-01] MEDS ORDERED: BISACODYL 5 MG TAB PO PRN (02:25)
[2025-05-01] MEDS ORDERED: DEXTROSE 50% 25 GM/50 ML VIAL IV PRN (02:25)
[2025-05-01] MEDS ORDERED: Ondansetron Hydrochloride 4 MG/2 ML VIAL IV PRN (02:25)
[2025-05-01 02:45] VITALS: BP 155/66
[2025-05-01] MEDS ORDERED: GLIPIZIDE10 M2 PO (03:10)
[2025-05-01 04:18] LABS: MEAN CELL VOLUME 90.3 fl (81.0-99.0); MEAN CORPUSCULAR HGB 29.1 pg (27.0-31.0); MEAN PLATELET VOLUME 9.6 fl (9.6-12.3); NUCLEATED RED BLOOD CELL 0.0 % (0.0-0.0); NUCLEATED RED BLOOD CELL 0.0 10*3/uL (0.0-0.0); PLATELET COUNT AUTOMATED 207 10*3/uL (130-400); RED CELL DISTRI WIDTH 13.7 % (0-14.5)
[2025-05-01 04:25] LABS: MANUAL DIFF REFLEX YES
[2025-05-01 04:39] LABS: ACT PARTIAL THROMBO TIME 29.9 SECONDS (20.0-32.1)
[2025-05-01 04:46] LABS: BUN 9 mg/dl (9-23); FREE T4 1.07 ng/dl (0.89-1.76); LDL CHOLESTEROL 72 mg/dL (9-159); SGPT/ALT 8 U/L (5-49)
[2025-05-01 05:00] LABS: PLATELET SUFFICIENCY NORMAL (NORMAL)
[2025-05-01] MEDS ORDERED: INSULIN LISPRO 1 UNIT/0.01 ML SQ SCH (07:30)
[2025-05-01 08:00] VITALS: BP 146/59
[2025-05-01 08:40] LABS: VITAMIN D, 25-HYDROXY 65.8 ng/mL (30-100)
[2025-05-01 09:09] LABS: BASO # 0.0 10*3/uL (0.0-0.1); BASO % 0.2 % (0.0-1.0); EOS # 0.0 10*3/uL (0.0-0.4); EOS % 0.0 % (1.0-4.0); MEAN CELL VOLUME 90.0 fl (81.0-99.0); MEAN CORPUSCULAR HGB 29.2 pg (27.0-31.0); MEAN PLATELET VOLUME 9.7 fl (9.6-12.3); MONO # 0.3 10*3/uL (0.1-1.0); MONO % 5.8 % (3.0-9.0); NEUT # 3.6 10*3/uL (2.3-7.9); NEUT % 81.3 % (47.0-73.0); NUCLEATED RED BLOOD CELL 0.0 % (0.0-0.0); NUCLEATED RED BLOOD CELL 0.0 10*3/uL (0.0-0.0); PLATELET COUNT AUTOMATED 248 10*3/uL (130-400); RED CELL DISTRI WIDTH 13.5 % (0-14.5)
[2025-05-01 09:13] LABS: BILIRUBIN Negative (Negative); BLOOD Negative (Negative); CLARITY Clear (Clear); COLOR Yellow (Yellow); KETONE 2+ (Negative); LEUKO ESTERASE Negative (Negative); NITRITE Negative (Negative); PH 5.5 (4.5-8.0); SPECIFIC GRAVITY >= 1.030 (1.001-1.030); UROBILINOGEN 1.0 E.U./dl (0.0-1.0)
[2025-05-01 09:36] LABS: BACTERIA 2+; RBC 0-2 rbc/hpf (0-2)
[2025-05-01] MEDS ORDERED: LISINOPRIL 10 MG TAB PO SCH (10:00)
[2025-05-01] MEDS ORDERED: ASPIRIN, CHEWABLE 81 MG TAB PO SCH (10:00)
[2025-05-01] MEDS ORDERED: APIXABAN 5 MG TAB PO SCH (10:00)
[2025-05-01 12:00] VITALS: BP 138/59
[2025-05-01] MEDS ORDERED: LEVOTHYROXINE100 MC2 PO (12:29)
[2025-05-01] MEDS ORDERED: ATORVASTATIN CALCIUM 20 MG TAB PO SCH (22:00)
[2025-05-02] MEDS ORDERED: FUROSEMIDE 20 MG TAB PO SCH (10:00)
== END 2025-05-01 16:55 | disposition home or self-care (01) ==
LOC: ED 22:13 → EDHOLD 05-01 00:46 → 4E 05-01 01:48
PROVIDERS: Emergency Medicine; Student in an Organized Health Care Education/Training Program; ADMIT Internal Medicine; ATTEND Internal Medicine
DX: G45.9 Transient cerebral ischemic attack, unspecified (principal); R20.0 Anesthesia of skin; D72.819 Decreased white blood cell count, unspecified; E11.65 Type 2 diabetes mellitus with hyperglycemia; R79.89 Other specified abnormal findings of blood chemistry; I35.0 Nonrheumatic aortic (valve) stenosis; I10 Essential (primary) hypertension; E78.5 Hyperlipidemia, unspecified; I25.10 Atherosclerotic heart disease of native coronary artery without angina pectoris; G56.00 Carpal tunnel syndrome, unspecified upper limb; Z79.4 Long term (current) use of insulin; Z79.899 Other long term (current) drug therapy

== ENCOUNTER → 2025-05-30 | Outpatient (CLI) | payer MEDICARE ==
[~2025-05-30] MED LIST changes: +GLIPIZIDE10 M2 PO; +LEVOTHYROXINE100 MC2 PO; +OCUVITE ADULT1 EAC3 PO; +SYNTHROID,LEVO75 MCG PO; +ZESTRIL10 MG PO
[2025-05-30 11:35] LABS: BUN 11 mg/dl (9-23); LDL CHOLESTEROL 63 mg/dL (9-159)
== END | disposition home or self-care (01) ==
LOC: LAB 10:45
PROVIDERS: ATTEND Internal Medicine
DX: I10 Essential (primary) hypertension (principal); E11.9 Type 2 diabetes mellitus without complications; I48.0 Paroxysmal atrial fibrillation; I25.10 Atherosclerotic heart disease of native coronary artery without angina pectoris

== ENCOUNTER → 2025-07-02 | Outpatient (CLI) | payer MEDICARE | END | disposition home or self-care (01) | LOC: LAB 11:31 | PROVIDERS: ATTEND Internal Medicine Medical Oncology | DX: C50.912 Malignant neoplasm of unspecified site of left female breast (principal) ==